=== PATIENT | female | born 1970 | race Caucasian/White ===

== ENCOUNTER 2016-12-01 16:48 | Emergency (ER) | payer BC ==
--- NOTE | 2016-12-01 17:33 | EDPHY ---
H & P Time Seen by Provider: 12/01/16 17:10 HPI/ROS: CHIEF COMPLAINT: Rash, joint pain HISTORY OF PRESENT ILLNESS: Patient is a 46-year-old female who presents to the emergency department multiple complaints. Patient states on Thursday she developed a mild rash on her arms, torso and legs. It is. Her face and back. She took Benadryl with no change. Yesterday she developed diffuse bilateral joint pain. She specifically noticed it on her thumbs and wrists. She has mild neck stiffness. She is able to move her head fully. She has no photophobia. No headache. No fever or chills. No nausea or vomiting. No focal deficits. Patient states that they placed a CT door and her house. Last and today her CT rotted that route which she cleaned up with a rubber glove. REVIEW OF SYSTEMS: My complete review of systems is negative except as mentioned in the HPI. Past Medical/Surgical History: Hypothyroidism Past surgical history: Negative Social history: The patient is . She does not smoke. Smoking Status: Never smoked Physical Exam: Vitals noted. 36.7, 113/92, 108, 14, 99% on room air GENERAL: Well-appearing, in no acute distress, alert. HEENT: Eyes normal to inspection, normal pharynx, no signs of dehydration. No meningismus. NECK: No thyromegaly, no lymphadenopathy, supple. RESPIRATORY: Clear to auscultation bilaterally, no rales, rhonchi or wheezing. CVS: Regular rate and rhythm, no rubs, murmurs, or gallops. ABDOMEN: Soft, nontender, nondistended, no organomegaly. BACK: Normal to inspection, no CVA tenderness. SKIN: Normal color, no rash, warm, dry. No pallor. I do not visualize a rash as noted. The patient states that her skin is more "blotchy" than normal. EXTREMITIES: No pedal edema, no calf tenderness, no Homans sign or cords, no joint swelling or redness. NEURO/PSYCH: Higher functions: Alert and Oriented x3. Normal speech and cognition. Normal mood and affect. Cranial nerves: Normal as tested. Cerebellar: Normal as tested. Normal gait. Peripheral exam: Normal motor exam. Normal sensation. Constitutional: Initial Vital Signs Temperature (C) 36.7 C 12/01/16 16:54 Heart Rate 108 H 12/01/16 16:54 Respiratory Rate 14 12/01/16 16:54 Blood Pressure 113/92 H 12/01/16 16:54 O2 Sat (%) 99 12/01/16 16:54 O2 Delivery Mode Room Air Allergies/Adverse Reactions: No Known Allergies Allergy (Verified 12/01/16 16:53) Home Medications: Medication Instructions Recorded Synthroid 01/26/11 Medical Decision Making ED Course/Re-evaluation: Or in the emergency department I discussed possible etiologies with the patient. I answered all her questions. I do not feel the patient has acute meningitis or is in need of a lumbar puncture at this time. Laboratory studies were ordered. Patient's CBC and chemistry were normal. I discussed the results with the patient. On recheck she was doing well. She had no new complaints. I gave patient warnings prior to leaving. She will return with worsening symptoms. Patient will follow up with Infectious Disease if her symptoms persist. She will call their office Thursday morning make appointment. Differential Diagnosis: My differential includes but is not limited to meningitis, encephalitis, zoonic diseases, viral illness, STD - Data Points Laboratory Results: Laboratory Results 12/01/16 18:00 12/01/16 18:00 12/01/16 12/01/16 12/01/16 18:00 18:00 18:00 WBC 6.26 10^3/uL 10^3/uL (3.80-9.50) RBC 4.50 10^6/uL 10^6/uL (4.18-5.33) Hgb 13.5 g/dL g/dL (12.6-16.3) Hct 39.2 % % (38.0-47.0) MCV 87.1 fL fL (81.5-99.8) MCH 30.0 pg pg (27.9-34.1) MCHC 34.4 g/dL g/dL (32.4-36.7) RDW 12.6 % % (11.5-15.2) Plt Count 258 10^3/uL 10^3/uL (150-400) MPV 9.4 fL fL (8.7-11.7) Neut % (Auto) 68.2 % % (39.3-74.2) Lymph % (Auto) 17.7 % % (15.0-45.0) Vilas % (Auto) 11.8 % % (4.5-13.0) Eos % (Auto) 1.4 % % (0.6-7.6) Baso % (Auto) 0.6 % % (0.3-1.7) Nucleat RBC Rel Count 0.0 % % (0.0-0.2) Absolute Neuts (auto) 4.26 10^3/uL 10^3/uL (1.70-6.50) Absolute Lymphs (auto) 1.11 10^3/uL 10^3/uL (1.00-3.00) Absolute Monos (auto) 0.74 10^3/uL 10^3/uL (0.30-0.80) Absolute Eos (auto) 0.09 10^3/uL 10^3/uL (0.03-0.40) Absolute Basos (auto) 0.04 10^3/uL 10^3/uL (0.02-0.10) Absolute Nucleated RBC 0.00 10^3/uL 10^3/uL (0-0.01) Immature Gran % 0.3 % % (0.0-1.1) Immature Gran # 0.02 10^3/uL 10^3/uL (0.00-0.10) Sodium 141 mEq/L mEq/L (134-144) Potassium 4.2 mEq/L mEq/L (3.5-5.2) Chloride 103 mEq/L mEq/L (97-110) Carbon Dioxide 24 mEq/l mEq/l (22-31) Anion Gap 14 mEq/L mEq/L (8-16) BUN 9 mg/dL mg/dL (7-23) Creatinine 0.7 mg/dL mg/dL (0.6-1.0) Estimated GFR > 60 Glucose 101 mg/dL H mg/dL (70-100) Calcium 9.2 mg/dL mg/dL (8.5-10.4) Total Bilirubin 0.6 mg/dL mg/dL (0.1-1.4) Conjugated Bilirubin 0.2 mg/dL mg/dL (0.0-0.5) Unconjugated Bilirubin 0.4 mg/dL mg/dL (0.0-1.1) AST 25 IU/L IU/L (14-46) ALT 28 IU/L IU/L (9-52) Alkaline Phosphatase 98 IU/L IU/L (38-126) Total Protein 7.4 g/dL g/dL (6.3-8.2) Albumin 4.0 g/dL g/dL (3.5-5.0) Lipase 296.0 IU/L IU/L (23-300) Beta HCG, Qual NEGATIVE Departure - Departure Disposition: Home, Routine, Self-Care Clinical Impression: Rash Joint pain Qualifiers: Joint pain location: unspecified Qualified Code(s): M25.50 - Pain in unspecified joint Condition: Good Instructions: Arthralgia (ED), Acute Rash (ED) Additional Instructions: Your laboratory studies were normal. Return with increasing rash, fever, neck stiffness, joint pain or any other concerns. Referrals: [facility] [Other] - 2-3 days, if not improved Merritt Berrios MD [Medical Doctor] - 5-7 days, call for appt.
[2016-12-01 18:06] LABS: % IMMATURE GRANULYOCYTES 0.3 % (0.0-1.1); ABSOLUTE IMMATURE GRANULOCYTES 0.02 10^3/uL (0.00-0.10); ADD DIFF? NO; ADD MORPH? NO; ADD SCAN? YES; FRAGMENT RBC FLAG 0 (0-99); HEMATOCRIT 39.2 % (38.0-47.0); HEMOGLOBIN 13.5 g/dL (12.6-16.3); LEFT SHIFT FLG 0 (0-99); LIPEMIA HEMOLYSIS FLAG 90 (0-99); MEAN CELL HEMOGLOBIN CONCENTR. 34.4 g/dL (32.4-36.7); MEAN CELL VOLUME 87.1 fL (81.5-99.8); MEAN PLATELET VOLUME 9.4 fL (8.7-11.7); PLATELET CLUMPS FLAG 20 (0-99); PLATELET COUNT 258 10^3/uL (150-400); RED CELL DISTRIBUTION WIDTH 12.6 % (11.5-15.2)
[2016-12-01 18:07] LABS: ATYPICAL LYMPHOCYTE FLAG 140 (0-99)
[2016-12-01 18:19] LABS: SCAN NEGATIVE
[2016-12-01 18:22] LABS: ALANINE AMINOTRANSFERASE 28 IU/L (9-52); ALKALINE PHOSPHATASE 98 IU/L (38-126); ANION GAP 14 mEq/L (8-16); ASPARTATE AMINOTRANSFERASE 25 IU/L (14-46); BILIRUBIN,TOTAL 0.6 mg/dL (0.1-1.4); BILIRUBIN-CONJUGATED 0.2 mg/dL (0.0-0.5); BILIRUBIN-UNCONJUGATED 0.4 mg/dL (0.0-1.1); CALCIUM 9.2 mg/dL (8.5-10.4); CARBON DIOXIDE 24 mEq/l (22-31); CHLORIDE 103 mEq/L (97-110); CREATININE 0.7 mg/dL (0.6-1.0); GLOMERULAR FILTRATION RATE > 60; GLUCOSE 101 mg/dL (70-100); POTASSIUM 4.2 mEq/L (3.5-5.2); SODIUM 141 mEq/L (134-144); TOTAL PROTEIN 7.4 g/dL (6.3-8.2)
[2016-12-01 19:11] VITALS: BP 122/62; PULSE 84; RESP 16; TEMP 98.8; O2SAT 96
== END 2016-12-01 19:20 | disposition home or self-care (01) ==
LOC: CED 16:48
DX: R21 Rash and other nonspecific skin eruption (principal); M25.50 Pain in unspecified joint
CPT/HCPCS: 80048-PO; 80076-PO; 83690-PO; 84703-PO; 85025-PO